=== PATIENT | female | born 1985 | race Caucasian/White ===

== ENCOUNTER 2023-06-24 01:51 | Emergency (ER) | payer SELFPAY ==
[~2023-06-24] VITALS: Ht 167.6 cm; Wt 60.0 kg
[2023-06-24 01:56] VITALS: BP 143/85; PULSE 100; RESP 16; TEMP 98.2; O2SAT 100
[2023-06-24] MEDS: BACITRACIN ZINC OINT UDPKT TOP ONE (02:15)
[2023-06-24] MEDS: LIDOCAINE HCL/PF 1% 10 MG/ML 5ML VIAL INFIL ONE (02:15)
[2023-06-24] MEDS ORDERED: ACETAMINOPHEN 500MG TABLET PO ONE (02:15)
[2023-06-24] MEDS ORDERED: TETANUS, DIPHTHERIA, PERTUSSIS VAC/PF 0.5ML (>10YR OLD) IM ONE (02:15)
[2023-06-24] MEDS ORDERED: BO1 TP (02:39)
== END 2023-06-24 03:45 | disposition home or self-care (01) ==
LOC: ER 01:51
DX: S01.81XA Laceration without foreign body of other part of head, initial encounter (principal); X58.XXXA Exposure to other specified factors, initial encounter; Y93.89 Activity, other specified; Y92.89 Other specified places as the place of occurrence of the external cause; Y99.8 Other external cause status
CPT/HCPCS: 90715; 12011; 90471; 99283; J3490; Z7610 ×2